=== PATIENT | male | born 1955 | race African-American/Black ===

== ENCOUNTER 2025-01-01 14:00 | Inpatient (IN) | payer MEDICARE ==
[2025-01-01 15:43] LABS: Anion Gap 14 mmol/L (10-20); BUN (Urea Nitrogen) 12 mg/dL (8.4-25.7); Calc. Creatinine Clearance 0 mL/min (70-130); Calcium 9.6 mg/dL (7.8-10.44); Carbon Dioxide 22 mmol/L (23-31); Chloride 108 mmol/L (98-107); Glucose 92 mg/dL (83-110); Potassium 3.7 mmol/L (3.5-5.1); Sodium 140 mmol/L (136-145)
[2025-01-02] MEDS ORDERED: PHENYLEPHRINE-NS 100 MCG/ML 10 ML SYRINGE ONE ×2 (06:34→06:50)
[2025-01-02] MEDS ORDERED: fentaNYL PF 100 MCG/2 ML SYRINGE ONE (06:46)
[2025-01-02] MEDS ORDERED: PROPOFOL 20 ML ONE (06:46)
[2025-01-02] MEDS ORDERED: SUCCINYLCHOLINE/SOD CL,ISO/PF 200 MG/10 ML SYRINGE FS ONE (06:48)
[2025-01-02] MEDS ORDERED: Glycopyrrolate 0.2 MG/ML 5 ML SYRINGE ONE ×2 (06:50→11:28)
[2025-01-02] MEDS ORDERED: NEOSTIGMINE 3 MG/3 ML SYRINGE ONE ×2 (06:50→11:28)
[2025-01-02] MEDS ORDERED: Heparin 10,000 UNITS/1 ML VIAL 30,000 UNITS in Sodium Chloride 0.9% 1,000 ML FS SCH (07:00)
[2025-01-02] MEDS ORDERED: CEFAZOLIN 2 GM VIAL ONE (07:25)
[2025-01-02] MEDS ORDERED: Calcium Chloride 1 GM/10 ML Abboject SYRINGE ONE (08:15)
[2025-01-02] MEDS ORDERED: Cardioplegic Soln 1,000 ML BAG ONE (08:15)
[2025-01-02] MEDS ORDERED: Heparin 30,000 units/30 ml VIAL ONE (08:15)
[2025-01-02] MEDS ORDERED: Thrombin 5000 UNITS/5 ML VIAL ONE (08:15)
[2025-01-02] MEDS ORDERED: Heparin 5,000 UNITS/ML VIAL ONE (08:15)
[2025-01-02] MEDS ORDERED: Heparin 10,000 UNITS/ 10 ML VIAL ONE (08:20)
[2025-01-02] MEDS ORDERED: Bisacodyl 10 MG SUPP PR PRN (11:23)
[2025-01-02] MEDS ORDERED: Hetastarch 6% 500 ML 500 ML IVPB PRN (11:23)
[2025-01-02] MEDS ORDERED: Albumin 5% 12.5 GM (250 mL) BOT IVPB PRN (11:23)
[2025-01-02] MEDS ORDERED: Acetaminophen 325 MG TAB PO PRN (11:23)
[2025-01-02] MEDS ORDERED: Mag-Al 1200 mg/1200 mg/30 ML UDCUP PO PRN (11:23)
[2025-01-02] MEDS ORDERED: hydrALAZINE 20 MG/ML VIAL SLOW IVP PRN (11:23)
[2025-01-02] MEDS ORDERED: Ondansetron PF 4 MG/2 ML Vial IVP PRN (11:23)
[2025-01-02] MEDS ORDERED: Nitroglycerin 50 MG/250 ML BOT 250 ML IVPB PRN (11:23)
[2025-01-02] MEDS ORDERED: Guaifenesin DM 100-10/5 ML UDCUP PO PRN (11:23)
[2025-01-02] MEDS ORDERED: NOREPINEPHRINE 8 MG/250 ML-D5W 250 ML IVPB PRN (11:23)
[2025-01-02] MEDS ORDERED: INSULIN REGULAR IN 0.9 % NACL 100 UNITS in Premix 1 BAG IVPB SCH (11:45)
[2025-01-02] MEDS ORDERED: Glucagon 1 MG/ML KIT SC PRN (11:45)
[2025-01-02] MEDS ORDERED: Dextrose 50% Abboject 50 ML SYRINGE SLOW IVP PRN (11:45)
[2025-01-02 11:51] LABS: Actual Bicarbonate (HCO3a) 19.2 mEq/L (22-28); Base Excess (BEa) -5.6 mEq/L (-2.0 to +3.0); CO2 Tension 35.3 mmHg (35.0-45.0); Hematocrit-ABG 35 % (42.0-52.0); Hemoglobin (Hb) 12.0 g/dL (14.0-18.0); O2 Tension (PaO2), arterial 116.0 mmHg (> 70.0); pH, Arterial 7.353 (7.35-7.45)
[2025-01-02 11:52] LABS: Calcium, Ionized (arterial) 1.07 mmol/L (1.12-1.30); Potassium - ABG Lab 4.06 mmol/L (3.70-5.30)
[2025-01-02 11:55] LABS: ALV-art Gradient 267.675 mmHg (0-20); Puncture Site Arterial Line
[2025-01-02 12:24] LABS: #Basophils 0.06 10x3/uL (0.0-0.2); #Eosinophils Less than 0.03 10x3/uL (0.0-0.7); #Monocytes 0.75 10x3/uL (0.11-0.59); #Neutrophils 16.52 10x3/uL (1.40-6.50); %Basophils 0.3 % (0.0-1.0); %Eosinophils 0.0 % (0.0-10.0); %Lymphocytes 13.9 % (21.0-51.0); %Monocytes 3.6 % (0.0-10.0); %Neutrophils 79.8 % (42.0-75.0); Hematocrit 33.9 % (42.0-52.0); Hemoglobin 10.8 g/dL (14.0-18.0); Mean Corpuscular Hemoglobin 26.9 pg (27.0-31.0); Mean Corpuscular Volume 84.5 fL (78.0-98.0); Platelet Count 238 10x3/uL (130-400); Red Blood Cell (RBC) Count 4.01 mill/uL (4.70-6.10); White Blood Cell (WBC) Count 20.70 10x3/uL (4.8-10.8)
[2025-01-02 12:32] VITALS: BMI 27.9
[2025-01-02] MEDS: D5 1/2 NS w/20 mEq KCL 1,000 ML IV SCH (12:41)
[2025-01-02] MEDS: Ketorolac Tromethamine 30 MG (1 mL) VIAL IVP SCH (12:42)
[2025-01-02] MEDS: Magnesium 2 GM/50 ML(in water) 2 GM in Premix 1 BAG IVPB SCH (12:42)
[2025-01-02 12:43] LABS: INR-International Normal Ratio 1.3; PTT 34.6 sec (22.9-36.1); Prothrombin Time 16.3 sec (12.0-14.7)
[2025-01-02 13:01] LABS: Anion Gap 14 mmol/L (10-20); BUN (Urea Nitrogen) 13 mg/dL (8.4-25.7); Calc. Creatinine Clearance 101 mL/min (70-130); Calcium 8.1 mg/dL (7.8-10.44); Carbon Dioxide 19 mmol/L (23-31); Chloride 111 mmol/L (98-107); Glucose 161 mg/dL (83-110); Potassium 3.7 mmol/L (3.5-5.1); Sodium 140 mmol/L (136-145)
[2025-01-02] MEDS: Albumin 5% 12.5 GM (250 mL) BOT IVPB PRN (14:07)
[2025-01-02] MEDS: Gabapentin 300 MG CAP PO SCH (14:13)
[2025-01-02 15:39] LABS: Actual Bicarbonate (HCO3a) 19.4 mEq/L (22-28); Base Excess (BEa) -5.6 mEq/L (-2.0 to +3.0); CO2 Tension 36.0 mmHg (35.0-45.0); Calcium, Ionized (arterial) 1.06 mmol/L (1.12-1.30); Hematocrit-ABG 35 % (42.0-52.0); Hemoglobin (Hb) 12.0 g/dL (14.0-18.0); O2 Tension (PaO2), arterial 112.0 mmHg (> 70.0); Potassium - ABG Lab 4.51 mmol/L (3.70-5.30); pH, Arterial 7.349 (7.35-7.45)
[2025-01-02] MEDS: Potassium Chloride 20 MEQ (100 mL) BAG IVPB PRN (15:44)
[2025-01-02 15:47] LABS: Puncture Site Arterial Line
[2025-01-02 15:48] LABS: ALV-art Gradient 128.200 mmHg (0-20)
[2025-01-02 18:11] LABS: Hematocrit 33.2 % (42.0-52.0); Hemoglobin 10.5 g/dL (14.0-18.0)
[2025-01-02 18:23] LABS: Potassium 4.5 mmol/L (3.5-5.1)
[2025-01-02] MEDS: Famotidine/PF 20 mg/2ml Vial SLOW IVP SCH (20:37)
[2025-01-03 04:14] LABS: #Basophils Less than 0.03 10x3/uL (0.0-0.2); #Eosinophils Less than 0.03 10x3/uL (0.0-0.7); #Monocytes 1.00 10x3/uL (0.11-0.59); #Neutrophils 10.58 10x3/uL (1.40-6.50); %Basophils 0.2 % (0.0-1.0); %Eosinophils 0.0 % (0.0-10.0); %Lymphocytes 10.0 % (21.0-51.0); %Monocytes 7.7 % (0.0-10.0); %Neutrophils 81.7 % (42.0-75.0); Hematocrit 30.2 % (42.0-52.0); Hemoglobin 10.0 g/dL (14.0-18.0); Mean Corpuscular Hemoglobin 27.8 pg (27.0-31.0); Mean Corpuscular Volume 83.9 fL (78.0-98.0); Platelet Count 209 10x3/uL (130-400); Red Blood Cell (RBC) Count 3.60 mill/uL (4.70-6.10); White Blood Cell (WBC) Count 12.94 10x3/uL (4.8-10.8)
[2025-01-03 04:38] LABS: Anion Gap 10 mmol/L (10-20); BUN (Urea Nitrogen) 12 mg/dL (8.4-25.7); Calc. Creatinine Clearance 79 mL/min (70-130); Calcium 7.9 mg/dL (7.8-10.44); Carbon Dioxide 23 mmol/L (23-31); Chloride 111 mmol/L (98-107); Glucose 119 mg/dL (83-110); Potassium 4.0 mmol/L (3.5-5.1); Sodium 140 mmol/L (136-145)
[2025-01-03] MEDS: Aspirin 325 MG TAB PO SCH (08:53)
[2025-01-03] MEDS: Enoxaparin 40 MG (0.4 mL) SYRINGE SC SCH (08:53)
[2025-01-03] MEDS: Magnesium 2 GM/50 ML(in water) 2 GM in Premix 1 BAG IVPB SCH (08:54)
[2025-01-03] MEDS: Pantoprazole 40 MG DR.TAB PO SCH (08:57)
[2025-01-03] MEDS ORDERED: Insulin Glargine 30 UNITS/0.3 ML VIAL SC PRN (11:41)
[2025-01-04 03:10] LABS: #Basophils 0.03 10x3/uL (0.0-0.2); #Eosinophils Less than 0.03 10x3/uL (0.0-0.7); #Monocytes 1.36 10x3/uL (0.11-0.59); #Neutrophils 8.15 10x3/uL (1.40-6.50); %Basophils 0.3 % (0.0-1.0); %Eosinophils 0.0 % (0.0-10.0); %Lymphocytes 14.4 % (21.0-51.0); %Monocytes 12.2 % (0.0-10.0); %Neutrophils 72.7 % (42.0-75.0); Hematocrit 29.6 % (42.0-52.0); Hemoglobin 9.5 g/dL (14.0-18.0); Mean Corpuscular Hemoglobin 27.1 pg (27.0-31.0); Mean Corpuscular Volume 84.6 fL (78.0-98.0); Platelet Count 190 10x3/uL (130-400); Red Blood Cell (RBC) Count 3.50 mill/uL (4.70-6.10); White Blood Cell (WBC) Count 11.19 10x3/uL (4.8-10.8)
[2025-01-04 03:43] LABS: Anion Gap 10 mmol/L (10-20); BUN (Urea Nitrogen) 12 mg/dL (8.4-25.7); Calc. Creatinine Clearance 76 mL/min (70-130); Calcium 7.8 mg/dL (7.8-10.44); Carbon Dioxide 23 mmol/L (23-31); Chloride 110 mmol/L (98-107); Glucose 114 mg/dL (83-110); Potassium 3.8 mmol/L (3.5-5.1); Sodium 139 mmol/L (136-145)
[2025-01-04] MEDS ORDERED: Nitroglycerin 0.4 MG TAB (25 Tab Bottle) SL PRN (09:08)
[2025-01-04] MEDS ORDERED: Artificial Tear Ophth Sol 15 ML BOT EA EYE PRN (09:08)
[2025-01-04] MEDS ORDERED: Mineral Oil ENEMA PR PRN (09:08)
[2025-01-04] MEDS ORDERED: diphenhydrAMINE 25 MG CAP PO PRN (09:08)
[2025-01-04] MEDS ORDERED: Milk Of Magnesia 30 ML UDCUP PO PRN (09:08)
[2025-01-05] MEDS: FLU (Fluad Triv) 25-26 (65UP)PF 45 MCG/0.5 ML Syringe IM ONE (08:23)
[2025-01-05] MEDS: PNEUMOC 20-VAL CONJ-DIP CRM/PF 0.5 ML SYRINGE IM ONE (08:24)
[2025-01-06 03:43] VITALS: TEMP 99
[2025-01-06 07:37] VITALS: BP 154/79
== END 2025-01-06 10:00 | disposition home or self-care (01) | DRG 236 ==
LOC: SURG A 01-02 06:07 → CCU 01-02 11:59 → PCU 01-04 23:32
PROVIDERS: ADMIT Thoracic Surgery (Cardiothoracic Vascular Surgery); ATTEND Thoracic Surgery (Cardiothoracic Vascular Surgery)
PROC: 02100Z9 Bypass Coronary Artery, One Artery from Left Internal Mammary, Open Approach (ICD-10-PCS; principal; 2025-01-02)
PROC: 021109W Bypass Coronary Artery, Two Arteries from Aorta with Autologous Venous Tissue, Open Approach (ICD-10-PCS; 2025-01-02)
PROC: 06BQ4ZZ Excision of Left Saphenous Vein, Percutaneous Endoscopic Approach (ICD-10-PCS; 2025-01-02)
PROC: 5A1221Z Performance of Cardiac Output, Continuous (ICD-10-PCS; 2025-01-02)
PROC: 02L70CK Occlusion of Left Atrial Appendage with Extraluminal Device, Open Approach (ICD-10-PCS; 2025-01-02)
PROC: 06HY33Z Insertion of Infusion Device into Lower Vein, Percutaneous Approach (ICD-10-PCS; 2025-01-02)
PROC: 4A03351 Measurement of Arterial Flow, Peripheral, Percutaneous Approach (ICD-10-PCS; 2025-01-02)
PROC: 3E033XZ Introduction of Vasopressor into Peripheral Vein, Percutaneous Approach (ICD-10-PCS; 2025-01-02)
PROC: 30233J1 Transfusion of Nonautologous Serum Albumin into Peripheral Vein, Percutaneous Approach (ICD-10-PCS; 2025-01-02)
PROC: 3E0234Z Introduction of Serum, Toxoid and Vaccine into Muscle, Percutaneous Approach (ICD-10-PCS; 2025-01-02)
DX: I25.10 Atherosclerotic heart disease of native coronary artery without angina pectoris (principal); I10 Essential (primary) hypertension; E78.5 Hyperlipidemia, unspecified; Z79.890 Hormone replacement therapy; Z79.82 Long term (current) use of aspirin; Z79.899 Other long term (current) drug therapy; Z23 Encounter for immunization
CPT/HCPCS: 36415; 36416; 71045; 80048; 82805; 85025; 85610; 85730; 86850; 86900; 86901; 93798; 94002; 94640; A4311; A4648; C1751; C1889; J0169; J0665; J1100; J1642; J1644; J1650; J1815; J1885; J2250; J2270; J2440; J2704; J2720; J3010; J3373; J3475; J3480; P9045; S0017